=== PATIENT | female | born 1945 | race Caucasian/White ===

== ENCOUNTER 2017-03-18 09:40 | Emergency (ER) | payer MEDICARE, BC ==
[2017-03-18 10:55] VITALS: BP 133/83
--- NOTE | 2017-03-18 11:15 | UC ---
Skin Complaint HPI - HPI Summary HPI Summary: RED WARM TENDER LUMP ON BACK WORSENING OVER LAST WEEK. SCANT DRAINAGE THIS MORNING - History of Current Complaint Chief Complaint: UCSkin Time Seen by Provider: 03/18/17 10:51 Stated Complaint: LUMP ON BACK Hx Obtained From: Patient Hx Last Menstrual Period: hysterectomy 1982 Onset/Duration: Lasting Days, Still Present, Worse Since - LAST WEEK Skin Exposure Onset/Duration: Days Ago Onset Severity: Mild Current Severity: Moderate Location: Discrete Aggravating: Touch Associated Signs & Symptoms: Positive: Rash, Drainage, Tenderness, Red Streaks - Allergy/Home Medications Allergies/Adverse Reactions: Allergies Allergy/AdvReac Type Severity Reaction Status Date / Time IVP CONTRAST Allergy Hives Uncoded 03/31/14 11:35 Home Medications: Home Medications Cardizem 120 MG TAB 240 mg PO DAILY 03/18/17 [History Confirmed 03/18/17] Dabigatran CAP(NF) [Pradaxa CAP(NF)] 1 tab PO DAILY 03/18/17 [History Confirmed 03/18/17] Review of Systems Constitutional: Negative Skin: Other - TENDER WARM RED LESION ON BACK Eyes: Negative ENT: Negative Respiratory: Negative Cardiovascular: Negative Gastrointestinal: Negative Genitourinary: Negative Motor: Negative Neurovascular: Negative Musculoskeletal: Negative Neurological: Negative Psychological: Negative All Other Systems Reviewed And Are Negative: Yes PMH/Surg Hx/FS Hx/Imm Hx Previously Healthy: Yes - Surgical History Surgical History: Yes Surgery Procedure, Year, and Place: D & C AFIB, on Pradaxa Lt BREAST BIOPSY - BENIGN. TOTAL HYSTERECTOMY SPINAL FUSION W/GRAFTING - L5-S1. Rt OOPHERECTOMY. APPENDECTOMY. SM BOWEL OBTRUCTION - Family History Known Family History: Negative: Diabetes - Social History Occupation: Employed Full-time Lives: With Family Alcohol Use: Occasionally Substance Use Type: None Smoking Status (MU): Heavy Every Day Tobacco Smoker Type: Cigarettes Amount Used/How Often: 1 ppd Have You Smoked in the Last Year: Yes Household Exposure Type: Cigarettes Physical Exam Triage Information Reviewed: Yes Vital Signs: Initial Vital Signs Temp 98.2 F 03/18/17 10:34 Pulse 78 03/18/17 10:34 Resp 16 03/18/17 10:34 BP 133/83 03/18/17 10:34 Pulse Ox 97 03/18/17 10:34 Vital Signs Reviewed: Yes Eye Exam: Normal ENT Exam: Normal ENT: Positive: Normal ENT inspection, TMs normal Dental Exam: Normal Neck exam: Normal Neck: Positive: Supple, Nontender Respiratory Exam: Normal Respiratory: Positive: Chest non-tender, Lungs clear, Normal breath sounds Cardiovascular Exam: Normal Cardiovascular: Positive: RRR, No Murmur Abdominal Exam: Normal Musculoskeletal Exam: Normal Musculoskeletal: Positive: Strength Intact Neurological Exam: Normal Psychological Exam: Normal Psychological: Positive: Normal Response To Family Skin: Positive: Other - TENDER RED WARM INDURATED AREA SPINE Course/Dx - Differential Diagnoses - Skin Complaint Differential Diagnoses: Abscess, Cellulitis, MRSA - Diagnoses Provider Diagnoses: CELLULITIS/ABSCESS Discharge - Discharge Plan Condition: Stable Disposition: HOME Prescriptions: Cephalexin CAP* [Keflex CAP*] 500 mg PO QID #40 cap Patient Education Materials: Cellulitis (ED), Abscess (ED) Referrals: Claus Barajas MD [Medical Doctor] - Ethan Vanessa MD [Medical Doctor] - Images Front/Back of Body, Lg (Burke): 1 - 3CM X 3CM INDURATED ERRYTHEMATOUS AREA WITH CENTRAL EXCORIATION AND SCARRING
== END 2017-03-18 11:10 | disposition home or self-care (01) ==
LOC: UCEAST 09:40
DX: L03.312 Cellulitis of back [any part except buttock and flank] (principal); L02.212 Cutaneous abscess of back [any part, except buttock and flank]; Z91.041 Radiographic dye allergy status; Z90.710 Acquired absence of both cervix and uterus; F17.210 Nicotine dependence, cigarettes, uncomplicated
CPT/HCPCS: 87070; 87077; 87205; 99211; G0463

== ENCOUNTER 2023-03-04 10:11 | Observation (INO) ==
[2023-03-04 10:41] LABS: ABS Lymphocytes 1.3 10^3/uL (1.0-4.8); ABS Monocytes 0.7 10^3/uL (0.0-0.9); ABS Neutrophils 8.6 10^3/uL (1.5-7.6); ABS Nucleated RBC 0.01 10^3/ul; Eosinophil % 0.3 %; Hematocrit 45.3 % (35-45); Hemoglobin 15.8 g/dL (11.5-14.3); Lymphocyte % 12.3 %; Mean Corpuscular Hemoglobin 30.4 pg (27-33); Mean Corpuscular Hgb Conc 34.9 g/dL (31-36); Mean Corpuscular Volume 87.1 fL (80-97); Mean Platelet Volume 8.4 fL (7.5-11.2); Nucleated Red Blood Cells % 0.1 /100 WBC (0.0-0.4); Platelet Count 269 10^3/uL (150-450); White Blood Count 10.6 10^3/uL (3.8-11.8)
[2023-03-04 10:59] LABS: INR 1.14 (0.88-1.18)
[2023-03-04 11:27] LABS: Albumin 4.3 g/dL (3.2-5.2); Albumin/Globulin Ratio 1.5 (1-3); Calcium 9.3 mg/dL (8.6-10.3); Creatinine, Serum 0.77 mg/dL (0.51-0.95); Globulin 2.8 g/dL (2-4); Potassium 3.9 mmol/L (3.5-5.0); Total Bilirubin 1.2 mg/dL (0.2-1.0); Total Protein 7.1 g/dL (6.4-8.9); eGFR CKD-EPI 79.4 (>60)
[2023-03-04] MEDS ORDERED: Famotidine IV 10 MG/ML 2 ml VIAL (20 mg) IV SLOW PU ONE (11:37)
[2023-03-04] MEDS ORDERED: Al Hydrox/Mg Hydrox/Simet LIQ 30 ML UDC PO ONE (11:37)
[2023-03-04 12:10] LABS: High Sensitivity Troponin 1 Hr 6 pg/mL (<15)
[2023-03-04 12:31] LABS: C Reactive Protein 1.09 mg/L (<8.01)
[2023-03-04] MEDS ORDERED: Nicotine PATCH 21 MG/24 HR PATCH TRANSDERM ONE (17:42)
[2023-03-04] MEDS ORDERED: NS 0.9% 1000 ml BAG 1,000 ML IV SCH (17:45)
[2023-03-04 18:45] LABS: Direct Bilirubin 0.4 mg/dL (0.03-0.18); HDL Cholesterol 56.5 mg/dL; Indirect Bilirubin 0.8 mg/dL (0.3-1.0)
[2023-03-04] MEDS: oxyCODONE SR 20 mg TAB PO PRN (19:14)
[2023-03-04] MEDS: NS 0.9% 1000 ml BAG 1,000 ML IV SCH (19:15)
[2023-03-04] MEDS: Enoxaparin 60 MG/0.6 ML SYR SUBCUT SCH (22:39)
[2023-03-05] MEDS: NS 0.9% 1000 ml BAG 1,000 ML IV SCH ×4 (01:00→23:15)
[2023-03-05 05:53] LABS: ABS Lymphocytes 1.7 10^3/uL (1.0-4.8); ABS Monocytes 0.6 10^3/uL (0.0-0.9); ABS Neutrophils 5.3 10^3/uL (1.5-7.6); Eosinophil % 0.4 %; Hematocrit 40.5 % (35-45); Hemoglobin 14.2 g/dL (11.5-14.3); Lymphocyte % 21.8 %; Mean Corpuscular Hemoglobin 30.5 pg (27-33); Mean Corpuscular Hgb Conc 35.1 g/dL (31-36); Mean Corpuscular Volume 87.1 fL (80-97); Mean Platelet Volume 8.6 fL (7.5-11.2); Nucleated Red Blood Cells % 0.1 /100 WBC (0.0-0.4); Platelet Count 242 10^3/uL (150-450); Red Blood Count 4.65 10^6/uL (3.63-4.92); Red Cell Distribution Width 12.8 % (12-17); White Blood Count 7.6 10^3/uL (3.8-11.8)
[2023-03-05 06:08] LABS: Albumin 4.1 g/dL (3.2-5.2); Albumin/Globulin Ratio 1.7 (1-3); Creatinine, Serum 0.68 mg/dL (0.51-0.95); Globulin 2.4 g/dL (2-4); Magnesium 1.6 mg/dL (1.9-2.7); Potassium 3.6 mmol/L (3.5-5.0); Total Bilirubin 1.2 mg/dL (0.2-1.0); Total Protein 6.5 g/dL (6.4-8.9); eGFR CKD-EPI 89.6 (>60)
[2023-03-05] MEDS: oxyCODONE SR 20 mg TAB PO PRN ×2 (06:41→18:41)
[2023-03-05] MEDS: Nicotine PATCH 21 MG/24 HR PATCH TRANSDERM SCH (08:01)
[2023-03-05] MEDS ORDERED: Magnesium Sulf 4 GM/100 ML IV 4,000 MG/100 ML BAG IVPB ONE (08:30)
[2023-03-05] MEDS: Enoxaparin 60 MG/0.6 ML SYR SUBCUT SCH (08:48)
[2023-03-05] MEDS ORDERED: Ondansetron 4 mg VIAL 2 MG/ML 2 ml VIAL IV PRN (09:42)
[2023-03-05] MEDS ORDERED: Pantoprazole VIAL 40 MG VIAL IV SCH (10:00)
[2023-03-05] MEDS ORDERED: Enoxaparin 80 MG/0.8 ML SYR SUBCUT SCH (21:00)
[2023-03-06 04:08] LABS: ABS Eosinophils 0.1 10^3/uL (0.0-0.5); ABS Lymphocytes 1.7 10^3/uL (1.0-4.8); ABS Monocytes 0.6 10^3/uL (0.0-0.9); ABS Neutrophils 3.5 10^3/uL (1.5-7.6); Eosinophil % 0.9 %; Hematocrit 37.2 % (35-45); Hemoglobin 12.9 g/dL (11.5-14.3); Lymphocyte % 28.6 %; Mean Corpuscular Hemoglobin 30.3 pg (27-33); Mean Corpuscular Hgb Conc 34.7 g/dL (31-36); Mean Corpuscular Volume 87.5 fL (80-97); Mean Platelet Volume 8.1 fL (7.5-11.2); Nucleated Red Blood Cells % 0.1 /100 WBC (0.0-0.4); Platelet Count 204 10^3/uL (150-450); Red Blood Count 4.25 10^6/uL (3.63-4.92); Red Cell Distribution Width 12.7 % (12-17); White Blood Count 5.9 10^3/uL (3.8-11.8)
[2023-03-06 04:24] LABS: Albumin 3.5 g/dL (3.2-5.2); Albumin/Globulin Ratio 1.6 (1-3); Calcium 8.3 mg/dL (8.6-10.3); Creatinine, Serum 0.65 mg/dL (0.51-0.95); Globulin 2.2 g/dL (2-4); HDL Cholesterol 41.7 mg/dL; Potassium 3.6 mmol/L (3.5-5.0); Total Bilirubin 0.8 mg/dL (0.2-1.0); Total Protein 5.7 g/dL (6.4-8.9); eGFR CKD-EPI 90.6 (>60)
[2023-03-06] MEDS: NS 0.9% 1000 ml BAG 1,000 ML IV SCH (05:47)
[2023-03-06] MEDS: oxyCODONE SR 20 mg TAB PO PRN (07:09)
[2023-03-06] MEDS: Nicotine PATCH 21 MG/24 HR PATCH TRANSDERM SCH (07:10)
[2023-03-06] MEDS ORDERED: Pantoprazole VIAL 40 MG VIAL IV SCH (09:00)
[2023-03-06] MEDS ORDERED: Iohexol 180 (CONTRAST) 10 ML SDV IV ONE (10:27)
[2023-03-06] MEDS ORDERED: Bupivacaine 0.25% SDV 30 ML ONE (10:28)
[2023-03-06] MEDS ORDERED: Lidocaine 2% PF 5 ML VIAL ONE (10:37)
[2023-03-06] MEDS ORDERED: Rocuronium 50 mg VIAL 10 mg/ml 5 ml VIAL (50 mg) ONE (10:37)
[2023-03-06] MEDS ORDERED: Propofol 10 MG/ML 20 ML BTL ONE (10:37)
[2023-03-06] MEDS ORDERED: fentaNYL 100 mcg/2 ml 50 MCG/ML VIAL ONE (10:38)
[2023-03-06] MEDS ORDERED: Midazolam 2 mg/2 ml VIAL 1 mg/ml 2 ml VIAL (2 mg) ONE (10:38)
[2023-03-06] MEDS ORDERED: Naloxone 0.4 mg VIAL 0.4 mg/ml 1 ml VIAL IV PRN (10:41)
[2023-03-06] MEDS ORDERED: ceFAZolin VIAL VIAL ONE (11:40)
[2023-03-06] MEDS ORDERED: Sterile Water for Inj 10 ML ONE (11:40)
[2023-03-06] MEDS ORDERED: Dexamethasone IV 4 MG/ML VIAL 1 ml VIAL ONE (11:55)
[2023-03-06] MEDS ORDERED: Ondansetron 4 mg VIAL 2 MG/ML 2 ml VIAL ONE (11:55)
[2023-03-06] MEDS ORDERED: HYDROmorphone 0.5 MG/0.5 ML SYRINGE ONE (12:26)
[2023-03-06] MEDS ORDERED: HYDROmorphone 1 MG/1 ML SYRINGE ONE (13:06)
[2023-03-06] MEDS: HYDROmorphone 1 MG/1 ML SYRINGE IV PRN ×5 (13:16→13:56)
[2023-03-06] MEDS ORDERED: Lidocaine PATCH 5% PATCH TRANSDERM ONE (14:17)
[2023-03-06 14:27] VITALS: BP 159/87
== END 2023-03-06 15:25 | disposition home or self-care (01) ==
LOC: ED 10:11 → EDHOLD 10:11 → SUATTDRO 17:15 → SSU 19:11
PROVIDERS: ADMIT Student in an Organized Health Care Education/Training Program; ATTEND Internal Medicine